=== PATIENT | male | born 1985 | race American Indian/Alaskan Native ===

== ENCOUNTER 2017-07-08 19:26 | Emergency (ER) | payer SELFPAY ==
[2017-07-08 20:31] VITALS: BP 124/76
[2017-07-08 20:58] LABS: Basophils % (Auto) 0.6 % (0.0-1.8); Eosinophils # (Auto) 0.1 K/mm3 (0.0-0.4); Eosinophils % (Auto) 1.6 % (0.0-4.3); Lymphocytes % (Auto) 24.7 % (13.4-35.0); Mean Corpuscular HGB Conc 31 % (32-34); Mean Corpuscular Volume 75 fl (84-94); Monocytes # (Auto) 0.3 K/mm3 (0.0-0.8); Monocytes % (Auto) 7.7 % (0.0-7.3); Platelet Count 197 K/mm3 (140-440); Red Blood Count 6.09 M/mm3 (3.65-5.03); Red Cell Distribution Width 16.8 % (13.2-15.2)
[2017-07-08 20:59] LABS: Hemoglobin 14.2 gm/dl (11.8-15.2)
[2017-07-08 21:00] LABS: Hematocrit 45.8 % (35.5-45.6); Mean Corpuscular Hemoglobin 23 pg (28-32)
[2017-07-08 21:17] LABS: BUN/Creatinine Ratio 10; Blood Urea Nitrogen 13 mg/dL (9-20); Calcium 9.1 mg/dL (8.4-10.2); Hemolysis Index 3
[2017-07-08 21:34] LABS: Bilirubin,Urine NEG (Negative); Blood,Urine NEG (Negative); Color,Urine Yellow (Yellow); Mucus,Urine FEW /HPF; Nitrite,Urine NEG (Negative); Protein,Urine <15 mg/dL mg/dL (Negative); Urobilinogen,Urine < 2.0 mg/dL (<2.0)
[2017-07-08 21:41] LABS: Amphetamine Screen,Urine PRESUMPTIVE NEGATIVE; Benzodiazepines Screen,Urine PRESUMPTIVE NEGATIVE; Cocaine Screen,Urine PRESUMPTIVE NEGATIVE; Methadone Screen,Urine PRESUMPTIVE NEGATIVE; Opiate Screen,Urine PRESUMPTIVE NEGATIVE
[2017-07-08 21:44] LABS: Cannabinoid Screen,Urine PRESUMPTIVE POSITIVE
--- NOTE | 2017-07-08 23:14 | Emergency Department Report ---
HPI - General Chief Complaint: Psych Time Seen by Provider: 07/08/17 22:53 - HPI HPI: 32-year-old male presents to the emergency department by EMS with complaint of depression. He says that he has a history "of this" has been going on for "a long time." When asked if he has any diagnosed psychiatric conditions, I mentioned bipolar disorder and schizophrenia, and the patient says "I feel like I might be bipolar because sometimes I'm down here and then other times I'm up here." However the patient denies any auditory or visual hallucinations or any suicidal or homicidal ideations. I asked if there was any concern that given his current state of mind whether he might be a danger to himself and he says no. He denies any medical conditions. I asked if there was something specifically that was making him feel depressed and he says that it is just an overall feeling but he does reference "a girl" that is also adding to his depression. He denies any romantic involvement with this person but also was not forthcoming about any details. 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 He lives with his mother. ED Past Medical Hx - Past Medical History Previous Medical History?: No Hx Psychiatric Treatment: Yes (depression) Additional medical history: Thyroid problems - Surgical History Past Surgical History?: Yes Additional Surgical History: Bladder surgery as a child - Social History Smoking Status: Never Smoker Substance Use Type: Marijuana - Medications Home Medications: Home Medications Medication Instructions Recorded Confirmed Last Taken Type No Known Home Medications [No 07/08/17 07/08/17 Unknown History Reported Home Medications] ED Review of Systems ROS: Stated complaint: MH Other details as noted in HPI Comment: All other systems reviewed and negative Constitutional: denies: chills, fever Eyes: denies: eye pain, eye discharge, vision change ENT: denies: ear pain, throat pain Respiratory: denies: cough, shortness of breath, wheezing Cardiovascular: denies: chest pain, palpitations Gastrointestinal: denies: abdominal pain, nausea, diarrhea Genitourinary: denies: urgency, dysuria Musculoskeletal: denies: back pain, joint swelling, arthralgia Skin: denies: rash, lesions Neurological: denies: headache, numbness Psychiatric: depression. denies: auditory hallucinations, visual hallucinations , homicidal thoughts, suicidal thoughts Physical Exam - Physical Exam Vital Signs: Vital Signs 07/08/17 20:18 Temperature 98.4 F Pulse Rate 84 Respiratory 16 Rate Blood Pressure 124/76 O2 Sat by Pulse 98 Oximetry Physical Exam: GENERAL: The patient is well-developed well-nourished. HENT: Normocephalic. Atraumatic. Patient has moist mucous membranes. EYES: Extraocular motions are intact. Pupils equal reactive to light bilaterally. NECK: Supple. Trachea is midline. CHEST/LUNGS: Clear to auscultation. There is no respiratory distress noted. HEART/CARDIOVASCULAR: Regular. There is no tachycardia. There is no murmur. ABDOMEN: Abdomen is soft, nontender. Patient has normal bowel sounds. There is no abdominal distention. SKIN: Skin is warm and dry. NEURO: The patient is awake, alert, and oriented. The patient is cooperative. The patient has no focal neurologic deficits. The patient has normal speech and gait. MUSCULOSKELETAL: There is no tenderness or deformity. There is no limitation range of motion. There is no evidence of acute injury. ED Course Vital Signs 07/08/17 20:18 Temperature 98.4 F Pulse Rate 84 Respiratory 16 Rate Blood Pressure 124/76 O2 Sat by Pulse 98 Oximetry ED Medical Decision Making - Lab Data Result diagrams: 07/08/17 20:36 07/08/17 20:36 - Medical Decision Making Patient presents with a complaint of some depression but denies any suicidal or homicidal ideations. Despite his mentioning that he feels like he could have bipolar disorder, he does not appear to show any hallucinations or any acute psychosis. Labs have been mostly unremarkable. Vital signs stable. The patient is currently calm and appropriate. He does not appear to meet criteria to be made a 1013. He was seen by Lucian, the psych sound engineer audio control, who agrees with this assessment and that he is safe for discharge home. He has been given a referral for the [facility] and encouraged to return to the emergency Department with any worsening of his symptoms or any acute distress. - Differential Diagnosis depression, bipolar disorder, schizophrenia, schizoaffective Critical Care Time: No Critical care attestation.: If time is entered above; I have spent that time in minutes in the direct care of this critically ill patient, excluding procedure time. ED Disposition Clinical Impression: Depression Qualifiers: Depression Type: unspecified Qualified Code(s): F32.9 - Major depressive disorder, single episode, unspecified Disposition: DC-01 TO HOME OR SELFCARE Is pt being admited?: No Condition: Stable Instructions: Depression (ED) Additional Instructions: Please follow up with the [facility] for some assistance with your depression. Return to the emergency Department with any worsening of your symptoms, thoughts of harming herself or others, or any acute distress. Referrals: [facility] [Outside] - 3-5 Days [facility] [Outside] - 3-5 Days Time of Disposition: 02:48
== END 2017-07-09 03:02 | disposition home or self-care (01) ==
LOC: ED 19:26
DX: F32.9 Major depressive disorder, single episode, unspecified (principal)
CPT/HCPCS: 36415; 80048; 80307; 81001; 85025; 99284; G0480; 80320